=== PATIENT | female | born 1960 | race Two or more races ===

== ENCOUNTER 2024-11-09 16:48 | Emergency (ER) | payer OTHER ==
[~2024-11-09] VITALS: Ht 160 cm; Wt 58.0 kg
[2024-11-09] MEDS: NITROGLYCERIN 0.4 MG SL TAB SL ONE (17:05)
[2024-11-09] MEDS: ASPirin-EC 325mg tab PO ONE (17:08)
--- NOTE | 2024-11-09 17:14 | ED.PDOC ---
HPI Comments MACRINA THAO: HPI: Poor Historian. 63-year-old female presents to emergency department for one day history of right-sided chest pain and right facial numbness and tingling. Patient has checked her blood pressure was in the 213s systolically. Patient received a full-dose aspirin prior to arrival and amlodipine 5 mg one pill x1. Onset of symptoms happened approximately 1-2 hours prior to arrival. Nurse practitioner for cardiology came to bedside and is evaluating the patient. She requested an echocardiogram. Past Medical History: Hypertension with medication noncompliant Past Surgical History: Denies REVIEW OF SYSTEMS: CONSTITUTIONAL: Denies acute: fever, diaphoresis, chills HEAD: Denies acute: headache, photophobia Eyes: Denies acute: Double vision, vision loss, eye pain, eye discharge. EARS: Denies acute: tinnitus, hearing loss, ear discharge, ear pain, THROAT: Denies acute: sore throat, swelling, difficulty swallowing , pain with swallowing, change in voice. NECK: Denies acute: neck pain, neck swelling, stiff neck. HEART: Denies acute : , palpitations, LUNGS: Denies acute: SOB, wheezing, cough, hemoptysis ABDOMEN: Denies acute: abdominal pain, Nausea, Vomiting, diarrhea, melena , hematemesis, hematochezia SKIN: Denies acute: rash, redness, lesions, itchiness. EXTREMITIES: Denies acute: calf pain, , , weakness, denies pain in extremity. Denies acute: Low back pain. Neuro: Denies acute: focal neurological deficit, motor or sensory focal neurological deficit, tremors, seizure like activity, confusion, dizziness, change in mental status, loss of bowel or bladder function, cauda equina like symptoms. : Denies acute: dysuria, hematuria, flank pain, increase in urinary frequency. PSYCH: Denies acute: hallucination, suicidal ideation, homicidal ideation. FEMALE: Denies acute: abnormal vaginal bleeding, foul odor, unusual discharge. PHYSICAL EXAM: General: ---gzdi-sd-hsdosowd-----acute distress, awake and alert. Head: normocephalic, atraumatic. Neck: supple, trachea is midline, no swelling. Throat: Normal phonation. Eyes:, no erythema, no purulent discharge, no proptosis, no icterus. Heart: regular rate, regular rhythm, no significant murmur appreciated. Lungs: no apparent respiratory distress, Able to speak in full sentences. No wheezing, no rhonchi, no crackles. No stridors Clear to auscultation bilaterally. Abdomen: non tender to palpation, non distended, soft, no guarding, no rebound, + bowel sounds. Neuro: Awake, Alert, oriented to name, self, situation, follows commands GCS=15. Speech is normal. Skin: no petechia, no purpura, no cyanosis, non-pale, not jaundice. Lower extremities: --no - Pitting edema no deformity, no focal swelling, no calf TTP. Makes eye contact. moves all four extremities. Face: no apparent facial droop. Ambulating in the ED independently. Cranial 2-12 are grossly intact. Extraocular muscles are intact, PERRLA ED COURSE: Chief Complaint: Chest Pain Time Seen by MD: 17:00 Reviewed Notes: Nurses Notes, Medications, Allergies Allergies: Uncoded Allergies: LISINOPRIL (Allergy, Unknown, 11/09/24) Information Source: Patient Was a procedure done? Was a procedure done?: No CP Differential Dx Differential Diagnosis: N/A Differential Diagnosis: Other (DDX include renal disease, thyroid disease, electrolyte abnormality, increased salt intake, medications non-compliance, undiagnosed HTN, Hypertensive crisis, hypertensive urgency., drug toxicity.) Differential Diagnosis: Other (Ddx include but not limitied to gastritis, musculoskeletal pain, radiculopathy, atypical chest pain, dissection, aneurysm, ACS, unstable angina, hiatal hernia, GERD, anxiety, costochondritis, PE, pneumothroax, neoplasm, cardiac ischemia, drug abuse, anemia.) X-Ray, Labs, Meds, VS Vital Signs Date Time Temp Pulse Resp B/P (MAP) Pulse Ox O2 Delivery O2 Flow Rate FiO2 11/09/24 19:52 59 11/09/24 19:30 97.9 67 10 150/90 (110) 92 97.9 11/09/24 19:30 67 10 92 Room Air* 0 21 11/09/24 19:00 63 16 153/70 (97) 98 11/09/24 18:49 153/70 11/09/24 18:21 73 18 94 Room Air* 0 21 11/09/24 17:53 65 11/09/24 17:25 97.9 73 18 164/89 (114) 94 97.9 11/09/24 17:19 97.8 78 16 189/102 (131) 98 97.8 11/09/24 17:05 189/102 11/09/24 16:53 76 Lab Test 11/09/24 20:17 11/09/24 18:16 11/09/24 17:55 11/09/24 17:09 Range/Units Troponin I High Sensitivity < 3 L 3 L 3 L </=34 ng/L Urine Color Colorless Yellow Urine Clarity Clear Clear Urine pH 7.0 5.0-9.0 Urine Specific [place] 1.005 1.001-1.035 Urine Protein Negative Negative Urine Ketones Negative Negative Urine Blood Negative Negative /uL Urine Nitrite Negative Negative Urine Bilirubin Negative Negative Urine Urobilinogen Normal Negative mg/dL Urine Leukocyte Esterase Negative Negative /uL Urine RBC 1 0 - 4 /hpf Urine Microscopic WBC < 1 0-5 /HPF Urine Squamous Epithelial Cells None seen <5 /hpf Urine Bacteria None seen None Seen /hpf Urine Glucose Normal Normal mg/dL White Blood Count 7.1 4.4-10.8 10^3/uL Red Blood Count 4.86 4.0-5.20 10^6/uL Hemoglobin 14.7 12.2-16.2 g/dL Hematocrit 42.1 36.0-46.0 % Mean Corpuscular Volume 86.7 80.0-100.0 fL Mean Corpuscular Hemoglobin 30.2 28.0-32.0 pg Mean Corpuscular Hemoglobin Concent 34.8 32.0-36.0 g/dL Red Cell Distribution Width 13.0 11.8-14.3 % Platelet Count 296 140-450 10^3/uL Mean Platelet Volume 7.7 6.9-10.8 fL Neutrophils (%) (Auto) 46.7 37.0-80.0 % Lymphocytes (%) (Auto) 42.9 10.0-50.0 % Monocytes (%) (Auto) 7.2 0.0-12.0 % Eosinophils (%) (Auto) 2.5 0.0-7.0 % Basophils (%) (Auto) 0.7 0.0-2.0 % Neutrophils # (Auto) 3.3 1.6-8.6 10 ^3/uL Lymphocytes # (Auto) 3.0 0.4-5.4 10 ^3/uL Monocytes # (Auto) 0.5 0-1.3 10 ^3/uL Eosinophils # (Auto) 0.2 0-0.8 10 ^3/uL Basophils # (Auto) 0.1 0-0.2 10 ^3/uL Nucleated Red Blood Cells 0.2 % Sodium Level 142 136-145 mmol/L Potassium Level 3.5 3.5-5.1 mmol/L Chloride Level 106 98-107 mmol/L Carbon Dioxide Level 27 20-31 mmol/L Anion Gap 9 5-15 Blood Urea Nitrogen 11 9-23 mg/dL Creatinine 0.64 0.550-1.02 mg/dL Glomerular Filtration Rate Calc 100 >90 mL/min BUN/Creatinine Ratio 17.2 10.0-20.0 Serum Glucose 73 L 74-106 mg/dL Calcium Level 10.0 8.7-10.4 mg/dL Total Bilirubin 0.5 0.2-1.0 mg/dL Aspartate Amino Transferase (AST) 19 13-40 U/L Alanine Aminotransferase (ALT) < 9 7-40 U/L Alkaline Phosphatase 71 46-116 U/L B-Type Natriuretic Peptide 14.91 0-100 pg/mL Total Protein 7.6 5.7-8.2 g/dL Albumin 4.9 H 3.2-4.8 g/dL Current Medications Medications (Trade) Dose Ordered Sig/Lj Route Start Time Stop Time Status Last Admin Nitroglycerin (Ntrostat Sublingual) 0.4 mg ONCE ONCE SL 11/09/24 17:00 11/09/24 17:03 DC 11/09/24 17:[address] [address] Ph: [phone] DIAGNOSTIC IMAGING Diagnostic Imaging Report : [id number] Signed PATIENT: ANTHONY THAO ACCT: [id number] UNIT: [id number] : 1960 LOC: ER ROOM / BED: / AGE / SEX: 63 / F ADM STATUS: REG ER SERVICE 3522 ORDERING PHYSICIAN: CHHAYA CONWAY DO PROCEDURE(s): ECIDC - ECHO 2D MODE CARDIAC DOP REASON: cp ORDER NUMBER(s): [id number], ACCESSION NUMBER(s): [id number] APPROVED REPORT EXAM: Two-dimensional and M-mode echocardiogram with Doppler and color Doppler. Blood Pressure: 189/102 mmHg INDICATION Chest Pain DIMENSIONS LVDd 4.0 (3.8-5.7cm) LA (2D) 3.3 (1.9-4.0cm) Aortic Root 3.2 (2.0- 3.7cm) LVDs 2.7 (2.5-4.0cm) LA (MM) (1.9-4.0cm) Aortic Cusp Exc 1.5 (1.5- 2.0cm) EF (%) 62.0 (55-70%) Rt. Atrium 3.1 (1.9-4.0cm) Asc. Aorta cm Mitral Valve Mitral Mitral Stenosis E wave 0.75m/s MV Mean GR. mmHg A wave 0.90m/s MV Peak GR. 35mmHg E/A ratio 0.8 2D MVA cm2 DECEL Time 292ms PRESS 1/2 Time 78ms IVRT ms Dop MVA 2.82cm2 Aortic Valve Aortic Valve Aortic Stenosis V1 1.04m/s AO Mean GR. 5mmHg V2 1.61m/s AO Peak GR. 10mmHg LVOT Diameter 1.8 (1.8-2.4cm) Doppler MITCH 1.64cm2 Pulmonic Valve V2 0.97m/s Tricuspid Valve TR Velocity 2.11m/s RVSP 26mmHg Conclusion NORMAL LV EF IS 65% NORMAL VALVES NORMAL RV FUNCTION AND SIZE NO EFFUSION SIGNED BY: ELLIE LOPEZ MD SIGNED DATE/TIME: 11/09/242006 CC: [address] [address] Ph: [phone] DIAGNOSTIC IMAGING Diagnostic Imaging Report : [id number] Signed PATIENT: ANTHONY THAO ACCT: [id number] UNIT: [id number] : 1960 LOC: ER ROOM / BED: / AGE / SEX: 63 / F ADM STATUS: REG ER SERVICE 99 ORDERING PHYSICIAN: CHHAYA CONWAY DO PROCEDURE(s): CXRP - CHEST PORTABLE REASON: radha naranjo ORDER NUMBER(s): [id number], ACCESSION NUMBER(s): [id number] CHEST RADIOGRAPH REASON FOR EXAM: cp, htn COMPARISON: None TECHNIQUE: One view of the chest is provided FINDINGS: The cardiomediastinal silhouette is within normal limits for technique. There is no focal airspace disease. There is no significant pleural effusion. No acute bony abnormality is identified. IMPRESSION: No radiographic evidence of acute cardiopulmonary process. ATED BY: LUC BRUSH MD DICTATED DATE/TIME: 11/09/241846 SIGNED BY: LUC BRUSH MD SIGNED DATE/TIME: 11/09/241846 CC: [place] [address] Ph: [phone] DIAGNOSTIC IMAGING Diagnostic Imaging Report : [id number] Signed PATIENT: ANTHONY THAO ACCT: [id number] UNIT: [id number] : 1960 LOC: ER ROOM / BED: / AGE / SEX: 63 / F ADM STATUS: REG ER SERVICE 99 ORDERING PHYSICIAN: CHHAYA CONWAY DO PROCEDURE(s): HWOCT - HEAD WITHOUT CONTRAST REASON: radha naranjo ORDER NUMBER(s): [id number], ACCESSION NUMBER(s): [id number] CLINICAL HISTORY: cp, htn TECHNIQUE: Helical imaging carried out from skull base to vertex without in travenous contrast. This exam was performed according to our departmental dose optimization program. Up-to-date CT equipment and radiation dose reduction techniques are utilized as appropriate. CTDIVol: 50.61 mGy DLP: 811.4 mGy-cm WID: COMPARISON: None FINDINGS: The ventricles and subarachnoid spaces are normal in size and configuration. There is no midline shift or mass effect. The vasquez white matter interfaces are maintained. The basal cisterns are patent. There is no evidence of acute intracranial hemorrhage or extra-axial fluid collection. The mastoid air cells and visualized paranasal sinuses are well-aerated Aside from mild mucosal thickening of the ethmoid air cells IMPRESSION: No acute intracranial abnormality. ATED BY: SVETLANA MCARTHUR MD DICTATED DATE/TIME: 11/09/241837 SIGNED BY: SVETLANA MCARTHUR MD SIGNED DATE/TIME: 11/09/241837 CC: Time of 1ST Reevaluation: 20:59 (The case was discussed with the [place] admitting team (HPI, physical exam, labs and diagnostic tests that were availabl e at the time of disposition, ED course, treatment plan) on the phone. They agreed to transfer the patient to their service by [facility] for further evaluation and treatment. Dr. bowman. Authorization number is--[id number]) Reevaluation 1ST: Improved Patient Education/Counseling: Diagnosis, Treatment Family Education/Counseling: Other Comments Patient presented with the above HPI.---hypertensive crisis and cardiac---workup was initiated. patient was found with the above mentioned diagnosis. the following medications were ordered: please refer to order lists of meds and tests obtained by myself Dr. Conway. Patient ED course and VS have been stabilized. Patient has been reassessed in the ED and remained in a stable condition. Pertinent incidental findings were discussed with the patient and/or family. Patient/family voices understanding and is agreeable with plan. Patient has been observed in the ED adequate length of time to insure improvement/stability. Escalation of care considered: Consideration of escalation to observation or admission The music promoter nurse practitioner came and evaluated the patient at bedside. Please see their consultation notes. Echocardiogram was performed at bedside. Patient was transferred to [place] team for further evaluation and treatment of their presentation per insurance requirement. All the reports of any imaging studies that were ordered by myself were reviewed by myself. Departure 1 Departure Time of Disposition: 17:14 Impression: Primary Impression: Chest pain Additional Impressions: Hypertensive crisis T wave inversion in EKG Disposition: 02 SHORT TERM HOSPITAL Admit to: [facility] Condition: Guarded Discharged With: Self Critical Care Note Critical Care Time?: Yes (1 hr-critical care time only) Heart Score Heart Score: Heart Score Response (Comments) Value History Highly Suspicious [address]-Deviation 2 Age 45-64 1 Risk Factors 1 or 2 risk factors 1 Troponin Normal limit 0 Total 6 I personally scribed for CHHAYA CONWAY DO ([email or web address]) on 11/09/24 at 21:47. Electronically submitted by Rigoberto Leon ([email or web address]). CHHAYA CONWAY DO Nov 09, 2024 17:14
[2024-11-09 17:42] LABS: Basophils # (auto) 0.1 10 ^3/uL (0-0.2); Basophils % (auto) 0.7 % (0.0-2.0); Eosinophils # (auto) 0.2 10 ^3/uL (0-0.8); Eosinophils % (auto) 2.5 % (0.0-7.0); Hematocrit 42.1 % (36.0-46.0); Hemoglobin 14.7 g/dL (12.2-16.2); Lymphocytes % (auto) 42.9 % (10.0-50.0); Mean Corpuscular Hemoglobin 30.2 pg (28.0-32.0); Mean Corpuscular Hgb Conc. 34.8 g/dL (32.0-36.0); Mean Corpuscular Volume 86.7 fL (80.0-100.0); Monocytes # (auto) 0.5 10 ^3/uL (0-1.3); Monocytes % (auto) 7.2 % (0.0-12.0); Neutrophils # (auto) 3.3 10 ^3/uL (1.6-8.6); Neutrophils % (auto) 46.7 % (37.0-80.0); Nucleated Red Blood Cells % 0.2 %; Platelet Count (auto) 296 10^3/uL (140-450); Red Blood Cells 4.86 10^6/uL (4.0-5.20); White Blood Cell 7.1 10^3/uL (4.4-10.8)
--- NOTE | 2024-11-09 17:51 | ECG ---
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
[2024-11-09 17:53] LABS: Alkaline Phosphatase 71 U/L (46-116); Anion Gap 9 (5-15); Aspartate Aminotransferase 19 U/L (13-40); BUN/Creatinine Ratio 17.2 (10.0-20.0); Blood Urea Nitrogen 11 mg/dL (9-23); Carbon Dioxide 27 mmol/L (20-31); Chloride 106 mmol/L (98-107); Sodium 142 mmol/L (136-145); Total Protein 7.6 g/dL (5.7-8.2)
[2024-11-09 17:54] LABS: Bilirubin, Total 0.5 mg/dL (0.2-1.0)
--- NOTE | 2024-11-09 18:03 | DVHINCON2 ---
Date Seen: Nov 09, 2024 Referring Physician MD Aleah Reason for Consultation chest pain History of Present Illness This is a 63-year-old female patient who presents to emergency room with chief complaint of chest pain. 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 while she was making phone calls at work, she began to experience chest pain. The patient describes the pain as unprovoked, constant, sharp in nature, right-sided with radiation to her right scapula. Associated symptoms include right facial numbness and headache. Upon emergency room arrival, the patient was noted to have a blood pressure darshana pennie as high as 189/102. Initial twelve lead electrocardiogram reveals normal sinus rhythm with nonspecific ST segment changes to anterior leads. Initial troponin level negative. Significant past medical history includes hypertension, dyslipidemia, and gestational diabetes. The patient admits to medication nonadherence. The patient reports she is not taking her antihypertensive medication in over one week. Past Medical History Past medical history reviewed. No other significant than mentioned above. Past Surgical History Denies any previous surgeries Family History Family history reviewed. Social History Denies the use of tobacco, alcohol or illicit drugs. Allergies: Uncoded Allergies: LISINOPRIL (Allergy, Unknown, 11/09/24) Home Meds Home medications reviewed. Review of Systems Constitutional: No symptom reported Ears, Nose, & Throat: No symptom reported Eyes: No symptom reported Neurological: Headache, right facial numbness Pulmonary/Respiratory: No symptoms reported Cardiovascular: Chest pain Gastrointestinal: No symptom reported Genitourinary: No symptom reported Musculoskeletal: No symptom reported Skin: No symptom reported Psychiatric: No symptom reported Endocrine: No symptom reported Hematologic/Lymphatic: No symptom reported Vital Signs Vital Signs Date Time Temp Pulse Resp B/P (MAP) Pulse Ox O2 Delivery O2 Flow Rate FiO2 11/09/24 17:19 97.8 78 16 189/102 (131) 98 97.8 Physical Exam General Appearance: Cooperative. Well-developed. Well-nourished. No acute distress. Pulmonary/Respiratory: Clear, bilateral breaths sounds. Cardiovascular/Chest: Regular rate and rhythm. Peripheral Pulses: 2+ Radial (R). 2+ Radial (L). 2+ Pedal (R). 2+ Pedal (L) Abdominal Exam: Normal bowel sounds. Ankle Exam: Negative ankle edema Lower extremities: Negative lower extremity edema Neuro/Mental Status: A/OX4, coherent. Thoughts/Psych: Normal thought pattern. Appropriate mood and affect. Good judgment and insight. Appearance: No acute distress. Skin Exam: Normal inspection. Normal color. Warm and dry. Labs/Diagnostic Data Labs Test 11/09/24 17:09 Range/Units Assessment Chest pain, rule out coronary artery disease Hypertensive urgency Rule out structural heart disease Dyslipidemia History of gestational diabetes Plan/Recommendation We will continue with the following plan/recommendations (Dr. Dale): * Transthoracic echocardiogram to evaluate cardiac function * Chest pain protocol * HEART score: 3 points * Aggressive BP control as tolerated * Close Cardiac surveillance * Coronary angiogram Patient seen and examined at bedside with . Given the patient's comorbidities and nonspecific ST segment changes on 12 lead electrocardiogram, the patient may benefit from coronary angiogram with left heart catheterization. The procedure was discussed with the patient in full detail including risks and benefits. Risks include but are not limited to bleeding, contrast-induced nephropathy, stroke, and even . The patient understands and is agreeable to undergo the procedure. We will schedule the patient on 11/12/2024. In the meantime, continue with medical management and aggressive blood pressure control as tolerated by patient. Thank you for allowing us to care for this patient. Please call with any questions or concerns. Critical care time spent: 44 minutes This medical document was created using an electronic medical record system with voice recognition software and computerized dictation system. Although this document has been carefully reviewed, there might still be some phonetic and typographical errors. Occasional wrong-word or ``sound-alike substitutions may have occurred due to the inherent limitations of voice recognition software. These areas are purely typographical due to imperfections of the software programs and do not reflect any compromise in the patient's medical care. Please read the chart carefully and recognize, using context, where these substitutions have occurred. Plan discussed with: Patient NYHA Physical activity limitations: NA Date of Service: Nov 09, 2024 Billing Provider: DARBY NAVA Cardiology Common Codes: 04834-RVORXNW INP/OBS CARE (High) Cardiology Consultation Codes: 58358-AKLTHAFOV CONSULT <45MIN DARBY NAVA Nov 09, 2024 18:03
[2024-11-09 18:09] LABS: Alanine Aminotransferase < 9 U/L (7-40); Albumin 4.9 g/dL (3.2-4.8); Glucose 73 mg/dL (74-106); Potassium 3.5 mmol/L (3.5-5.1)
[2024-11-09 18:21] VITALS: PULSE 73; RESP 18; O2SAT 94
[2024-11-09 18:29] LABS: Urine Bacteria None Seen /hpf (None Seen)
[2024-11-09 18:35] LABS: Urine Blood Negative /uL (Negative); Urine Clarity Clear (Clear); Urine Color Colorless (Yellow); Urine Protein, UAD Negative (Negative); Urine Specific Gravity 1.005 (1.001-1.035); Urine Squamous Epithelial Cell None Seen /hpf (<5); Urine Urobilinogen Normal (Negative); Urine WBC < 1 /HPF (0-5)
--- NOTE | 2024-11-09 18:40 | DVH ---
CLINICAL HISTORY: cp, htn TECHNIQUE: Helical imaging carried out from skull base to vertex without intravenous contrast. This e xam was performed according to our departmental dose optimization program. Up-to-date CT equipment an d radiation dose reduction techniques are utilized as appropriate. CTDIVol: 50.61 mGy DLP: 811.4 mGy-cm WID: COMPARISON: None FINDINGS: The ventricles and subarachnoid spaces are normal in size and configuration. There is no midline antonio ft or mass effect. The vasquez white matter interfaces are maintained. The basal cisterns are patent. Th ere is no evidence of acute intracranial hemorrhage or extra-axial fluid collection. The mastoid air cells and visualized paranasal sinuses are well-aerated Aside from mild mucosal thickening of the eth moid air cells IMPRESSION: No acute intracranial abnormality.
--- NOTE | 2024-11-09 18:49 | DVH ---
CHEST RADIOGRAPH REASON FOR EXAM: cp, htn COMPARISON: None TECHNIQUE: One view of the chest is provided FINDINGS: The cardiomediastinal silhouette is within normal limits for technique. There is no focal a irspace disease. There is no significant pleural effusion. No acute bony abnormality is identified. IMPRESSION: No radiographic evidence of acute cardiopulmonary process.
[2024-11-09 19:30] VITALS: PULSE 67; RESP 10; O2SAT 92
--- NOTE | 2024-11-09 19:53 | ECG ---
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
--- NOTE | 2024-11-09 20:07 | DVHSR ---
APPROVED REPORT EXAM: Two-dimensional and M-mode echocardiogram with Doppler and color Doppler. Blood Pressure: 189/102 mmHg INDICATION Chest Pain DIMENSIONS LVDd4.0 (3.8-5.7cm)LA (2D)3.3 (1.9-4.0cm)Aortic Root3.2 (2.0-3.7cm) LVDs2.7 (2.5-4.0cm)LA (MM) (1.9-4.0cm)Aortic Cusp Exc1.5 (1.5-2.0cm) EF (%) 62.0 (55-70%)Rt. Atrium3.1 (1.9-4.0cm)Asc. Aorta cm Mitral Valve MitralMitral Stenosis E wave0.75m/sMV Mean GR.mmHg A wave0.90m/sMV Peak GR.35mmHg E/A ratio0.82D MVAcm2 DECEL [id number] 1/2 [id number] IVRTmsDop MVA2.82cm2 Aortic Valve Aortic ValveAortic Stenosis V11.04m/[place]bey Mean GR.5mmHg V21.61m/[place] Peak GR.10mmHg LVOT Diameter1.8 (1.8-2.4cm)Doppler AVA1.64cm2 Pulmonic Valve V20.97m/s Tricuspid Valve TR Velocity2.11m/s [id number] Conclusion NORMAL LV EF IS 65% NORMAL VALVES NORMAL RV FUNCTION AND SIZE NO EFFUSION
--- NOTE | 2024-11-10 00:03 | DVHINCON2 ---
Date Seen: Nov 09, 2024 Referring Physician MD Aleah Reason for Consultation Chest pain History of Present Illness This is a 63-year-old female with a past medical history of hypertension, dyslipidemia, and gestational diabetes who presents to emergency room with complaint of chest pain. 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 while she was making phone call s at work, she began to experience chest pain. Patient describes the pain as unprovoked, constant, sharp in nature, right-sided with radiation to her right scapula. Associated symptoms include right facial numbness and headache. Upon emergency room arrival, the patient was noted to have a blood pressure reaching as high as 189/102. Initial twelve lead electrocardiogram reveals normal sinus rhythm with nonspecific ST segment changes to anterior leads. Initial troponin level negative. The patient admits to medication nonadherence. The patient reports she has not taken her antihypertensive medication in over one week. Chest x-ray shows NAD. CT head showed no acute intracranial abnormality. Patient was admitted to the hospital. I am asked to consult on this patient. Past Medical History Past medical history reviewed. No other significant than mentioned above. Past Surgical History Denies any previous surgeries Allergies: Uncoded Allergies: LISINOPRIL (Allergy, Unknown, 11/09/24) Review of Systems Constitutional: No symptom reported Ears, Nose, & Throat: No symptom reported Eyes: No symptom reported Neurological: Headache, right facial numbness Pulmonary/Respiratory: No symptoms reported Cardiovascular: Chest pain Gastrointestinal: No symptom reported Genitourinary: No symptom reported Musculoskeletal: No symptom reported Skin: No symptom reported Psychiatric: No symptom reported Endocrine: No symptom reported Hematologic/Lymphatic: No symptom reported Vital Signs Vital Signs Date Time Temp Pulse Resp B/P (MAP) Pulse Ox O2 Delivery O2 Flow Rate FiO2 11/09/24 19:52 59 11/09/24 19:30 97.9 10 150/90 (110) 92 97.9 11/09/24 19:30 Room Air* 0 21 Physical Exam GENERAL: Alert and oriented x 3. No acute distress. EYES: PERRL, EOMI. Anicteric. HENT: Moist mucous membranes. LUNGS: Clear to auscultation bilaterally. CARDIOVASCULAR: Regular rate and rhythm. ABDOMEN: Soft, nontender and nondistended. EXTREMITIES: No edema. NEUROLOGIC: No focal neurological deficits. SKIN: Warm, dry. Labs/Diagnostic Data Labs Test 11/09/24 20:17 11/09/24 18:16 11/09/24 17:09 Range/Units Troponin I High Sensitivity < 3 L </=34 ng/L Urine Color Colorless Yellow Urine Clarity Clear Clear Urine pH 7.0 5.0-9.0 Urine Specific [place] 1.005 1.001-1.035 Urine Protein Negative Negative Urine Ketones Negative Negative Urine Blood Negative Negative /uL Urine Nitrite Negative Negative Urine Bilirubin Negative Negative Urine Urobilinogen Normal Negative mg/dL Urine Leukocyte Esterase Negative Negative /uL Urine RBC 1 0 - 4 /hpf Urine Microscopic WBC < 1 0-5 /HPF Urine Squamous Epithelial Cells None seen <5 /hpf Urine Bacteria None seen None Seen /hpf Urine Glucose Normal Normal mg/dL White Blood Count 7.1 4.4-10.8 10^3/uL Red Blood Count 4.86 4.0-5.20 10^6/uL Hemoglobin 14.7 12.2-16.2 g/dL Hematocrit 42.1 36.0-46.0 % Mean Corpuscular Volume 86.7 80.0-100.0 fL Mean Corpuscular Hemoglobin 30.2 28.0-32.0 pg Mean Corpuscular Hemoglobin Concent 34.8 32.0-36.0 g/dL Red Cell Distribution Width 13.0 11.8-14.3 % Platelet Count 296 140-450 10^3/uL Mean Platelet Volume 7.7 6.9-10.8 fL Neutrophils (%) (Auto) 46.7 37.0-80.0 % Lymphocytes (%) (Auto) 42.9 10.0-50.0 % Monocytes (%) (Auto) 7.2 0.0-12.0 % Eosinophils (%) (Auto) 2.5 0.0-7.0 % Basophils (%) (Auto) 0.7 0.0-2.0 % Neutrophils # (Auto) 3.3 1.6-8.6 10 ^3/uL Lymphocytes # (Auto) 3.0 0.4-5.4 10 ^3/uL Monocytes # (Auto) 0.5 0-1.3 10 ^3/uL Eosinophils # (Auto) 0.2 0-0.8 10 ^3/uL Basophils # (Auto) 0.1 0-0.2 10 ^3/uL Nucleated Red Blood Cells 0.2 % Sodium Level 142 136-145 mmol/L Potassium Level 3.5 3.5-5.1 mmol/L Chloride Level 106 98-107 mmol/L Carbon Dioxide Level 27 20-31 mmol/L Anion Gap 9 5-15 Blood Urea Nitrogen 11 9-23 mg/dL Creatinine 0.64 0.550-1.02 mg/dL Glomerular Filtration Rate Calc 100 >90 mL/min BUN/Creatinine Ratio 17.2 10.0-20.0 Serum Glucose 73 L 74-106 mg/dL Calcium Level 10.0 8.7-10.4 mg/dL Total Bilirubin 0.5 0.2-1.0 mg/dL Aspartate Amino Transferase (AST) 19 13-40 U/L Alanine Aminotransferase (ALT) < 9 7-40 U/L Alkaline Phosphatase 71 46-116 U/L B-Type Natriuretic Peptide 14.91 0-100 pg/mL Total Protein 7.6 5.7-8.2 g/dL Albumin 4.9 H 3.2-4.8 g/dL Assessment Chest pain, rule out coronary artery disease. Hypertensive urgency. Rule out structural heart disease. Dyslipidemia. History of gestational diabetes. Plan/Recommendation I agree with your ongoing assessment and care of plan. Patient has been seen by Anu Peters NP on my behalf, her and I discussed the plan with the patient. Transthoracic echocardiogram to evaluate cardiac function. Chest pain protocol. HEART score: 3 points. Aggressive BP control as tolerated. Close Cardiac surveillance. Given the patient's comorbidities and nonspecific ST segment changes on 12 lead electrocardiogram, the patient may benefit from coronary angiogram with left heart catheterization. The procedure was discussed with the patient in full detail including risks and benefits. Risks include but are not limited to bleeding, contrast-induced nephropathy, stroke, and even . The patient understands and is agreeable to undergo the procedure. We will schedule the patient on 11/12/2024. In the meantime, continue with medical management and aggressive blood pressure control as tolerated by patient. Additional plan as per the hospital course. Plan discussed with: Patient NYHA Physical activity limitations: NA Date of Service: Nov 10, 2024 Billing Provider: ELLIE LOPEZ MD Cardiology Common Codes: 01839-ZQLOSXI INP/OBS CARE (High) Cardiology Consultation Codes: 74209-GJDPXEBNP CONSULT <45MIN ELLIE LOPEZ MD Nov 09, 2024 21:15
[2024-11-10 00:54] VITALS: BP 136/78; PULSE 62; RESP 13; TEMP 98.7; O2SAT 97
--- NOTE | 2024-11-11 08:44 | ECG ---
[facility] Test Date: 2024-11-09 Test Time: 16:53:52 Pat Name: ANTHONY THAO Department: ER Room: Gender: F Gang Boss: AISSATOU : 1960 Requested By: PEG CUELLAR Order Number: [id number] Reading MD: Measurements Intervals [place] Rate: 76 P: 38 [place]: 142 QRS: 50 QRSD: 90 T: -40 QT: 404 QTc: 455 Interpretive Statements Sinus rhythm Low voltage, precordial leads Probable anteroseptal infarct, old Borderline T abnormalities, inferior leads Please click the below link to view image of tracing.
== END 2024-11-09 21:00 | disposition short-term general hospital (02) ==
LOC: ER 16:48
DX: I16.9 Hypertensive crisis, unspecified (principal); R07.89 Other chest pain; R94.31 Abnormal electrocardiogram [ECG] [EKG]; Z79.899 Other long term (current) drug therapy; R42 Dizziness and giddiness
CPT/HCPCS: 36415; 70450; 71045; 80053; 81001; 83880; 84484; 85025; 93005; 93306; 99291